=== PATIENT | female | born 1965 | race Caucasian/White ===

== ENCOUNTER 2017-02-08 23:27 | Observation (INO) | payer BC ==
[~2017-02-08] VITALS: Ht 170.2 cm; Wt 124.7 kg
[2017-02-09 00:40] LABS: EOSINOPHIL (%) 0.6 % (0-5); EOSINOPHIL COUNT 0.1 K/uL (0-0.3); HEMATOCRIT 33.7 % (36.0-46.0); IMMATURE GRANULOCYTE (%) 0.6 % (0.0-0.7); IMMATURE GRANULOCYTE COUNT 0.1 K/uL; INSTRUMENT ABS NEUTROPHIL CT 9.4 K/uL; LYMPHOCYTE COUNT 2.1 K/uL (1.0-2.8); MCH 30.8 PG (29.0-34.0); MCHC 34.1 G/DL (30.0-36.0); MCV 90.3 FL (83-99); MEAN PLAT.VOLUME 9.3 uM^3 (9.5-12.4); MONOCYTE (%) 7.2 % (3-12); MONOCYTE COUNT 0.9 K/uL (0-0.8); NEUTROPHIL COUNT 9.4 K/uL (1.8-6.4); PLATELET COUNT 325 K/uL (156-360); RBC DIS.WIDTH-CV 13.1 % (11.8-14.6); RBC DIS.WIDTH-SD 43.3 % (39-53); RED BLOOD COUNT 3.73 M/uL (3.80-5.20); WHITE BLOOD COUNT 12.6 K/uL (4.1-10.2)
[2017-02-09 00:54] LABS: CHLORIDE 107 mEq/L (99-109); POTASSIUM 3.4 mEq/L (3.7-5.4); SODIUM 139 mEq/L (136-147)
[2017-02-09 00:55] LABS: GLUCOSE 113 mg/dL (70-99)
[2017-02-09 00:56] LABS: ANION GAP 9 MEQ/L (2-14)
[2017-02-09 00:59] LABS: GFR ESTIMATE (CALCULATED) > 59 mL/min/
[2017-02-09 01:00] LABS: UREA NITROGEN (BUN) 11 mg/dL (9-23)
[2017-02-09 03:09] LABS: ADD MIUA? YES; BILIRUBIN NEGATIVE; BLOOD MODERATE; COLOR YELLOW ((YELLOW)); GLUCOSE (STRIP) NEGATIVE; KETONES 5; LEUKOCYTES NEGATIVE; NITRITE NEGATIVE; PROTEIN (STRIP) 30; SPECIFIC GRAVITY 1.023 (1.000-1.030); UROBILINOGEN 0.2 MG/DL (0.2-1.0)
[2017-02-09 03:18] LABS: BACTERIA RARE /HPF; EPITHELIAL CELLS RARE /HPF; MUCUS TRACE /LPF; RED BLOOD CELLS 40-50 /HPF (0-5); UCUL ADDED? NO
[2017-02-09 07:10] VITALS: BP 109/65
[2017-02-09 12:00] VITALS: BP 130/70
[2017-02-09 15:24] VITALS: BP 119/71
[2017-02-09 20:00] VITALS: BP 131/71
[2017-02-09 23:58] VITALS: BP 146/80
[2017-02-10] MEDS ORDERED: TRAMADOL HCL50 MG PO (01:34)
[2017-02-10] MEDS ORDERED: CEPHALEXIN250 MG PO (01:34)
[2017-02-10] MEDS ORDERED: VALSARTAN-HCTZ1 EAC1 PO (01:35)
[2017-02-10] MEDS ORDERED: ZOFRAN ODT4 MG PO (01:35)
[2017-02-10] MEDS ORDERED: PRILOSEC20 MG PO (01:36)
[2017-02-10] MEDS ORDERED: CELEBREX200 MG PO (01:36)
[2017-02-10 04:00] VITALS: BP 127/90
[2017-02-10 06:55] VITALS: BP 130/70
[2017-02-10 07:18] LABS: HEMATOCRIT 32.5 % (36.0-46.0); MCH 30.9 PG (29.0-34.0); MCHC 33.5 G/DL (30.0-36.0); MCV 92.1 FL (83-99); MEAN PLAT.VOLUME 9.6 uM^3 (9.5-12.4); PLATELET COUNT 287 K/uL (156-360); RBC DIS.WIDTH-CV 12.9 % (11.8-14.6); RBC DIS.WIDTH-SD 43.8 % (39-53); RED BLOOD COUNT 3.53 M/uL (3.80-5.20); WHITE BLOOD COUNT 7.5 K/uL (4.1-10.2)
[2017-02-10 07:38] LABS: ANION GAP 9 MEQ/L (2-14); CHLORIDE 108 MEQ/L (99-109); GFR ESTIMATE (CALCULATED) > 59 mL/min/; GLUCOSE 124 mg/dL (70-99); POTASSIUM 3.9 MEQ/L (3.7-5.4); SAMPLE HEMOLYSIS CHECK 0; SAMPLE ICTERIC CHECK 0; SAMPLE LIPEMIA CHECK 0; SODIUM 140 MEQ/L (136-147); UREA NITROGEN (BUN) 10 mg/dL (9-23)
[2017-02-10] MEDS ORDERED: CIPRO500 MG PO (10:28)
[2017-02-10] MEDS ORDERED: FLORASTOR250 MG PO (10:28)
== END 2017-02-10 12:01 | disposition home or self-care (01) ==
LOC: EME 23:27 → EDOF 02-09 03:57 → 5WEST 02-09 07:02
PROVIDERS: Hospitalist
PROC: 0T778DZ Dilation of Left Ureter with Intraluminal Device, Via Natural or Artificial Opening Endoscopic (ICD-10-PCS; principal; 2017-02-09)
DX: N13.6 Pyonephrosis (principal); I10 Essential (primary) hypertension; N39.0 Urinary tract infection, site not specified; E66.9 Obesity, unspecified; Z68.41 Body mass index [BMI] 40.0-44.9, adult
CPT/HCPCS: 74176; 80048; 81003; 83605; 85025; 85027; 87040; 87086; 99281; 99285; C1758; C1876; G0378; J0330; J0696; J1100; J1644; J1885; J2250; J2405; J3010; J7030; J7050